=== PATIENT | male | born 1955 | race Native Hawaiian/Other Pacific Islander ===

== ENCOUNTER 2017-12-19 10:17 | Emergency (ER) | payer OTHER ==
[~2017-12-19] VITALS: Ht 182.9 cm; Wt 95.3 kg
[2017-12-19 10:17] VITALS: TEMP 97.3
[2017-12-19 11:52] VITALS: BP 165/77
== END 2017-12-19 11:52 | disposition home or self-care (01) ==
LOC: ED 10:17
DX: T78.3XXA Angioneurotic edema, initial encounter (principal); T78.40XA Allergy, unspecified, initial encounter
CPT/HCPCS: 96372; 99282; J2930

== ENCOUNTER 2017-12-21 17:06 | Emergency (ER) | payer OTHER ==
[~2017-12-21] VITALS: Ht 182.9 cm; Wt 95.3 kg
[2017-12-21 17:14] VITALS: TEMP 99
[2017-12-21 18:06] VITALS: BP 156/82
== END 2017-12-21 18:06 | disposition home or self-care (01) ==
LOC: ED 17:06
DX: K14.0 Glossitis (principal); I10 Essential (primary) hypertension; K14.6 Glossodynia
CPT/HCPCS: 99281

== ENCOUNTER 2020-03-08 12:44 | Outpatient (CLI) | payer OTHER, MEDICARE ==
[2020-03-08 13:40] LABS: PLATELET COUNT 210 K/uL (142-355)
[2020-03-08 14:29] LABS: POTASSIUM 4.5 mmol/L (3.6-5.2)
== END 2020-03-08 22:15 | disposition home or self-care (01) ==
LOC: LABW 12:44
PROVIDERS: ATTEND Emergency Medicine
DX: Z12.11 Encounter for screening for malignant neoplasm of colon (principal); B18.1 Chronic viral hepatitis B without delta-agent; Z13.0 Encounter for screening for diseases of the blood and blood-forming organs and certain disorders involving the immune mechanism; Z13.220 Encounter for screening for lipoid disorders; Z13.29 Encounter for screening for other suspected endocrine disorder; R73.09 Other abnormal glucose; Z11.4 Encounter for screening for human immunodeficiency virus [HIV]; Z79.899 Other long term (current) drug therapy
CPT/HCPCS: 36415; 80053; 80061; 80074; 83036; 84443; 85027; 87535; G0432

== ENCOUNTER 2020-03-14 12:53 | Outpatient (CLI) | payer OTHER, MEDICARE | END 2020-03-14 19:31 | disposition home or self-care (01) | LOC: LAB 12:53 | PROVIDERS: ATTEND Emergency Medicine | DX: Z12.11 Encounter for screening for malignant neoplasm of colon (principal); B18.1 Chronic viral hepatitis B without delta-agent; Z13.0 Encounter for screening for diseases of the blood and blood-forming organs and certain disorders involving the immune mechanism; Z13.220 Encounter for screening for lipoid disorders; Z13.29 Encounter for screening for other suspected endocrine disorder; R73.09 Other abnormal glucose; Z11.4 Encounter for screening for human immunodeficiency virus [HIV]; Z79.899 Other long term (current) drug therapy | CPT/HCPCS: 82272 ==

== ENCOUNTER 2020-04-13 15:14 | Emergency (ER) | payer OTHER, MEDICARE ==
[~2020-04-13] VITALS: Ht 182.9 cm; Wt 104.3 kg
[2020-04-13 15:26] VITALS: TEMP 98.6
[2020-04-13 17:05] VITALS: BP 165/79
== END 2020-04-13 17:05 | disposition home or self-care (01) ==
LOC: ED 15:14
DX: M54.89 Other dorsalgia (principal); G89.29 Other chronic pain; M79.605 Pain in left leg; M79.604 Pain in right leg; M51.36 Other intervertebral disc degeneration, lumbar region; M51.37 Other intervertebral disc degeneration, lumbosacral region; M51.34 Other intervertebral disc degeneration, thoracic region
CPT/HCPCS: 96372; 99282; 99283; J1885

== ENCOUNTER 2020-06-30 13:20 | Outpatient (CLI) | payer OTHER, MEDICARE | END 2020-06-30 22:07 | disposition home or self-care (01) | LOC: INF 13:20 | PROVIDERS: ATTEND Internal Medicine | DX: Z23 Encounter for immunization (principal) | CPT/HCPCS: 96372 ==

== ENCOUNTER 2020-07-22 13:18 | Outpatient (CLI) | payer OTHER, MEDICARE | END 2020-07-22 22:00 | disposition home or self-care (01) | LOC: INF 13:18 | PROVIDERS: ATTEND Internal Medicine | DX: Z23 Encounter for immunization (principal) | CPT/HCPCS: 96372 ==